=== PATIENT | male | born 1970 | race African-American/Black ===

== ENCOUNTER 2020-12-02 15:20 | Emergency (ER) | payer BC ==
[~2020-12-02] VITALS: Ht 193 cm; Wt 190.5 kg
[2020-12-02] MEDS ORDERED: METOPROLOL SUCC50 MG (15:59)
== END 2020-12-02 18:20 | disposition home or self-care (01) ==
LOC: ER 15:20
DX: I83.891 Varicose veins of right lower extremity with other complications (principal); Z03.818 Encounter for observation for suspected exposure to other biological agents ruled out